=== PATIENT | male | born 1965 | race Caucasian/White ===

== ENCOUNTER → 2017-12-24 | Day surgery (SDC) | payer BC ==
[2017-12-23 14:08] LABS: BASOPHILS % 0.5 % (0.0-1.0); EOSINOPHILS # (AUTO) 0.2 (0.0-0.4); EOSINOPHILS % 3.3 % (0.0-6.0); HEMATOCRIT 38.3 % (38.2-49.6); HEMOGLOBIN 13.2 g/dL (14.0-18.0); LYMPHOCYTES # (AUTO) 1.1 (1.0-3.2); LYMPHOCYTES % 19.2 % (18.0-39.1); MEAN CORPUSCULAR HEMOGLOBIN 29.3 pg (28-32); MEAN CORPUSCULAR HGB CONC 34.5 g/dL (31-35); MEAN CORPUSCULAR VOLUME 85.1 fL (81-99); MONOCYTES # (AUTO) 0.5 (0.2-0.8); MONOCYTES % 8.5 % (4.4-11.3); NEUTROPHILS # (AUTO) 3.8 (2.1-6.9); NEUTROPHILS % 68.1 % (38.7-80.0); PLATELET COUNT 146 x10e3/uL (140-360)
[2017-12-23 14:19] LABS: INR 1.07; PROTHROMBIN TIME 13.1 seconds (11.9-14.5)
[2017-12-23 14:20] LABS: PARTIAL THROMBOPLASTIN TIME 32.5 seconds (23.8-35.5)
[2017-12-23 14:26] LABS: ALANINE AMINOTRANSFERASE 20 IU/L (0-55); ALBUMIN 3.7 g/dL (3.5-5.0); ALBUMIN/GLOBULIN RATIO 1.1 (0.8-2.0); ALKALINE PHOSPHATASE 43 IU/L (40-150); ANION GAP 14.6 mmol/L (8-16); BLOOD UREA NITROGEN 13 mg/dL (7-26); BUN/CREATININE RATIO 16 (6-25); CALCIUM 9.1 mg/dL (8.4-10.2); CARBON DIOXIDE 24 mmol/L (22-29); CHLORIDE 102 mmol/L (98-107); CREATININE, SERUM 0.82 mg/dL (0.72-1.25); EST GLOMERULAR FILTRATION RATE > 60 ML/MIN (60-); GLUCOSE 110 mg/dL (74-118); POTASSIUM 3.6 mmol/L (3.5-5.1); SODIUM 137 mmol/L (136-145)
--- NOTE | 2017-12-23 23:28 | Diagnostic Imaging Report ---
CHEST 2 VIEWS, Technique: CHEST 2 VIEWS Comparison: 11/26/2016 Clinical history: Preoperative heart catheter DISCUSSION: Stable mildly enlarged cardiac silhouette. No consolidation or edema. No pleural effusion or pneumothorax. IMPRESSION: No acute abnormality Signed by: Dr Belinda Smith MD on 12/23/2017 11:24 PM
[2017-12-24] VITALS (12 sets, daily range): BP systolic 121–167; BP diastolic 51–99
[~2017-12-24] MED LIST: DIOVAN160 MG PO; FENTANYL CITRATE/PF 100MCG/2 ML INJ ONE; FUROSEMIDE40 MG PO; HEPARIN SOD/SOD CHLORIDE 2,000 ML ONE; IOPAMIDOL 370 MG/ML 200 ML INFUS..BTL INJ ONE; KLOR-CON 1010 MEQ; LEVAQUIN500 MG PO; LIDOCAINE HCL 2% LOCAL 20 ML VIAL ONE; METOPROLOL TART25 MG PO; MIDAZOLAM HCL 2 MG/2 ML VIAL ONE; SODIUM CHLORIDE 0.9% 1000ML 1,000 ML ONE
--- NOTE | 2017-12-24 10:47 | Operative Report ---
DATE OF PROCEDURE: December 24, 2017 PROCEDURE: Cardiac catheterization. INDICATIONS: Cardiomyopathy. ANESTHESIA: Two percent lidocaine for local anesthesia and Versed and fentanyl for conscious sedation. BLOOD LOSS: 2 mL. DESCRIPTION OF PROCEDURE: After informed consent, the patient was brought to the cardiac catheterization laboratory. Patient was given Versed and fentanyl for conscious sedation. Two lidocaine was injected in the right groin for local anesthesia. Right femoral artery was accessed by Seldinger technique, and a 5-[place] sheath was placed in right femoral artery. Left main was cannulated using a JL4, 4-[place] catheter. Coronary angiogram was performed. Images were obtained in multiple views. The right coronary artery was cannulated using a 3DRC 5-[place] catheter. Coronary angiogram was performed. Images were obtained in multiple views. LV-gram was performed using a pigtail catheter. Patient tolerated the procedure without any complications. REPORT LEFT MAIN: Normal caliber and no significant stenosis. LEFT ANTERIOR DESCENDING: Normal caliber. No significant stenosis. LEFT CIRCUMFLEX: Large caliber, dominant and no significant stenosis. RIGHT CORONARY ARTERY: Normal caliber, nondominant and has luminal irregularities. HEMODYNAMICS: Aortic pressure is 140/80. LV pressure 145/16. LVEDP is 32. LV-GRAM: Diffuse hyperkinesis of the left ventricle is noted. Overall ejection fraction is 30%. PLAN: Medical management and treatment for nonischemic cardiomyopathy. Job#: [id number] TANIKA
--- NOTE | 2017-12-31 13:21 | Operative Report ---
DATE OF PROCEDURE: December 24, 2017 This report was dictated and apparently did not go through and so is being re-dictated. PROCEDURE PERFORMED 1. Left heart catheterization. 2. Selective coronary angiogram. 3. LV gram. INDICATIONS: Cardiomyopathy. DESCRIPTION OF PROCEDURE: After informed consent, the patient was brought to the cardiac catheterization laboratory and placed on the table. Both groins were painted and draped in a sterile fashion. Lidocaine was injected to the right groin for local anesthesia. Right femoral artery was accessed by Seldinger technique, and a 5-[place] sheath was placed in the right femoral artery. Left main artery was cannulated using a JL4, 5-[place] catheter. Coronary angiogram was performed. Images were obtained in multiple views. Right coronary artery was cannulated using a 3-DRC 5-[place] catheter. Coronary angiogram was performed. Images were obtained in multiple views. LV gram was performed using a pigtail catheter. Patient tolerated the procedure without any complications. REPORT 1. Left main; normal caliber and no significant stenosis. 2. Left anterior descending; normal caliber and no significant stenosis. 3. Left circumflex; large caliber dominant vessel and no significant stenosis. 4. Right coronary artery; normal caliber, nondominant vessel with luminal irregularities. 5. LV gram; diffuse hyperkinesis of left ventricle is noted. Overall ejection fraction is 30%. HEMODYNAMICS: Aortic pressure is 140/80. LV pressure 145/16. LVEDP is 32. PLAN: Medical management. Job#: [id number] TU
== END | disposition home or self-care (01) ==
LOC: CATH LAB 08:19
DX: I42.9 Cardiomyopathy, unspecified (principal); R94.39 Abnormal result of other cardiovascular function study; I10 Essential (primary) hypertension; E66.9 Obesity, unspecified; Z01.810 Encounter for preprocedural cardiovascular examination; Z01.818 Encounter for other preprocedural examination; Z68.37 Body mass index [BMI] 37.0-37.9, adult; Z82.49 Family history of ischemic heart disease and other diseases of the circulatory system; Z82.3 Family history of stroke
CPT/HCPCS: 36415; 71046; 80053; 85025; 85610; 85730; 93005; 93458; J2001; J2250; J7030; Q9967